=== PATIENT | male | born 1990 | race Caucasian/White ===

== ENCOUNTER 2016-09-10 17:30 | Emergency (ER) | payer BC ==
[2016-09-10 17:35] VITALS: TEMP 97.5
[2016-09-10] MEDS ORDERED: TDAP ADULT 0.5 ML INJ (BOOSTRIX) IM ONE (18:10)
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
[2016-09-10 19:38] VITALS: BP 133/85; PULSE 77; RESP 16; O2SAT 96
== END 2016-09-10 19:38 | disposition home or self-care (01) ==
PROC: 0HQFXZZ Repair Right Hand Skin, External Approach (ICD-10-PCS; principal; 2016-09-10)
PROC: 0H9QXZZ Drainage of Finger Nail, External Approach (ICD-10-PCS; 2016-09-10)
DX: S61.216A Laceration without foreign body of right little finger without damage to nail, initial encounter (principal); S61.011A Laceration without foreign body of right thumb without damage to nail, initial encounter; S60.011A Contusion of right thumb without damage to nail, initial encounter; Z23 Encounter for immunization; V97.32XA Injured by rotating propeller, initial encounter; Y92.009 Unspecified place in unspecified non-institutional (private) residence as the place of occurrence of the external cause